=== PATIENT | female | born 1960 | race Caucasian/White ===

== ENCOUNTER 2018-07-01 15:08 | Emergency (ER) | payer MEDICARE, MEDICAID ==
[~2018-07-01] VITALS: Ht 154.9 cm; Wt 104.5 kg
[~2018-07-01 15:08] MED LIST: ADVAIR 500/501 DISK INH; FLUTICASONE PRO16 GM NASAL; HYDROCODONE-APA1 TAB PO; K-TAB10 MEQ PO; MAG-OXIDE400 MG PO; MULTIPLE VITAMI1 TA1 PO; NORVASC10 MG PO; PRILOSEC20 MG PO; PROVENTIL/2.5 MG/3 M INH; SINGULAIR10 MG PO; XANAX XR 1 MG TA1 MG PO; ZYRTEC10 MG PO
[2018-07-01 15:43] VITALS: Ht 154.9 cm; Wt 104.5 kg
[2018-07-01] MEDS ORDERED: XOPENEX 0.0.63 MG/3 UPD (15:45)
[2018-07-01] MEDS ORDERED: PHENERGAN25 M1 PO (19:50)
[2018-07-01 20:36] VITALS: BP 158/86
== END 2018-07-01 20:00 | disposition home or self-care (01) ==
LOC: D.ER 15:08
DX: G43.909 Migraine, unspecified, not intractable, without status migrainosus (principal); R11.0 Nausea; I10 Essential (primary) hypertension

== ENCOUNTER 2020-12-30 15:03 | Observation (INO) | payer MEDICARE, MEDICAID ==
[~2020-12-30] VITALS: Ht 154.9 cm; Wt 96.4 kg
[~2020-12-30 15:03] MED LIST changes: +OMEPRAZOLE20 M1 PO; +PHENERGAN25 M1 PO; -PRILOSEC20 MG PO; +XOPENEX 0.0.63 MG/3 UPD
[2020-12-30 15:07] VITALS: Ht 154.9 cm; Wt 96.4 kg
[2020-12-30 15:30] LABS: HEMATOCRIT 45.1 % (36.0-48.0); HEMOGLOBIN 14.7 g/dL (12-16); MCH 30.1 pg (26.0-34.0); MCHC 32.6 g/dL (31.0-37.0); MCV 92.2 fL (80.0-100.0); MEAN PLATELET VOLUME 8.5 fL (7.4-10.4); PLATELET COUNT 371 10x3/uL (130-400); RBC 4.89 10x6/uL (4.00-5.40); WBC 40.2 10x3/uL (4.8-10.8)
[2020-12-30 15:44] LABS: CALC OSMOLALITY 283 mosm/kg (275-300); CALCIUM 8.7 mg/dL (8.5-10.1); CARBON DIOXIDE 29.4 mmol/L (21.0-32.0); CHLORIDE - SERUM 105 mmol/L (98-107); CREATININE - SERUM 0.8 mg/dL (0.6-1.3); GLUCOSE 114 mg/dL (74-106); SODIUM 142 mmol/L (136-145); UREA NITROGEN 13 mg/dL (7-18); eGFR NON AFRICAN AMERICAN 77 mL/min (90-120)
[2020-12-30 16:01] LABS: ALBUMIN 3.7 g/dL (3.4-5.0); ALKALINE PHOSPHATASE 108 U/L (30-120); ALT (SGPT) 30 U/L (10-68); BILIRUBIN - TOTAL 0.25 mg/dL (0.2-1.3); CKMB 0.6 U/L (0.0-3.6); CREATINE KINASE 115 UL (21-215); PROTEIN - SERUM 7.1 g/dL (6.4-8.2)
[2020-12-30 16:04] LABS: TROPONIN-I < 0.017 ng/mL (0.000-0.060)
[2020-12-30 16:17] LABS: LYMPHOCYTES 82 % (15-50); MONOCYTES 1 % (2-11); NEUTROPHILS 17 % (40-80); PLATELET ESTIMATE NORMAL
[2020-12-30] MEDS ORDERED: IMITREX6 MG/0.51 SC (17:41)
[2020-12-30] MEDS ORDERED: AZELASTINE137 MCG/0. NASAL (17:44)
[2020-12-30] MEDS ORDERED: GLUCOTROL XL 1010 MG PO (17:45)
[2020-12-30] MEDS ORDERED: AIMOVIG SC (17:47)
[2020-12-30] MEDS ORDERED: LASIX40 MG PO (21:07)
[2020-12-30] MEDS ORDERED: IPRAT-ALBUT 0.5-3 ML UPD (21:09)
[2020-12-30 21:46] VITALS: BP 141/70
[2020-12-30 22:58] VITALS: BP 133/79
--- NOTE | 2020-12-31 01:08 | NUR ---
EKG 1 OF 3 SHOWS NORMAL SINUS RHYTHM. PT STATES CHEST PAIN AT THIS TIME.
[2020-12-31 01:47] LABS: CKMB 0.6 U/L (0.0-3.6); CREATINE KINASE 114 UL (21-215)
[2020-12-31 01:52] LABS: TROPONIN-I < 0.017 ng/mL (0.000-0.060)
--- NOTE | 2020-12-31 02:19 | NUR ---
REPORT GIVEN TO TRUDY SANCHEZ
--- NOTE | 2020-12-31 05:21 | NUR ---
CARDIOLOGY PAGED FOR CONSULT
[2020-12-31 06:22] LABS: BASOPHILS 0.3 % (0-2); EOSINOPHILS 0.5 % (0-7); HEMATOCRIT 42.5 % (36.0-48.0); HEMOGLOBIN 14.1 g/dL (12-16); MCH 30.2 pg (26.0-34.0); MCHC 33.1 g/dL (31.0-37.0); MCV 91.3 fL (80.0-100.0); MEAN PLATELET VOLUME 8.4 fL (7.4-10.4); MONOCYTES 2.8 % (2-11); NEUTROPHILS 22.4 % (40-80); PLATELET COUNT 319 10x3/uL (130-400); RBC 4.66 10x6/uL (4.00-5.40); WBC 33.5 10x3/uL (4.8-10.8)
[2020-12-31 06:46] LABS: ALBUMIN 3.3 g/dL (3.4-5.0); ALKALINE PHOSPHATASE 102 U/L (30-120); ALT (SGPT) 26 U/L (10-68); CALC OSMOLALITY 282 mosm/kg (275-300); CALCIUM 8.8 mg/dL (8.5-10.1); CARBON DIOXIDE 29.1 mmol/L (21.0-32.0); CHLORIDE - SERUM 106 mmol/L (98-107); CHOL - HDL RATIO 4.4 ratio (2.3-4.1); CHOLESTEROL, TOTAL 188 mg/dL (0-200); CKMB 0.6 U/L (0.0-3.6); CREATINE KINASE 105 UL (21-215); CREATININE - SERUM 0.7 mg/dL (0.6-1.3); GLUCOSE 89 mg/dL (74-106); HDL CHOLESTEROL 43 mg/dL (32-96); LDL CHOLESTEROL 124 mg/dL (0-100); LDL-HDL RATIO 2.9 ratio (1.5-3.5); PHOSPHOROUS 4.2 mg/dL (2.5-4.9); POTASSIUM - SERUM 3.2 mmol/L (3.5-5.1); PROTEIN - SERUM 6.5 g/dL (6.4-8.2); SODIUM 143 mmol/L (136-145); TRIGLYCERIDE 105 mg/dL (30-200); TROPONIN-I < 0.017 ng/mL (0.000-0.060); UREA NITROGEN 9 mg/dL (7-18); eGFR NON AFRICAN AMERICAN 90 mL/min (90-120)
[2020-12-31 11:38] VITALS: BP 125/73
[2020-12-31 12:12] LABS: CKMB 0.6 U/L (0.0-3.6); CREATINE KINASE 121 UL (21-215); TROPONIN-I < 0.017 ng/mL (0.000-0.060)
[2020-12-31 19:33] VITALS: BP 135/70
[2020-12-31 22:01] VITALS: BP 116/86
[2020-12-31 23:00] VITALS: BP 116/64
[2021-01-01 00:01] VITALS: BP 138/70
[2021-01-01 02:27] VITALS: BP 109/55
[2021-01-01 05:21] VITALS: BP 113/61
[2021-01-01 07:48] LABS: HEMATOCRIT 45.7 % (36.0-48.0); HEMOGLOBIN 15.1 g/dL (12-16); MCH 30.2 pg (26.0-34.0); MCV 91.5 fL (80.0-100.0); MEAN PLATELET VOLUME 9.2 fL (7.4-10.4); PLATELET COUNT 333 10x3/uL (130-400); RDW 14.2 % (11.5-14.5); WBC 34.6 10x3/uL (4.8-10.8)
[2021-01-01 08:02] LABS: ALBUMIN 3.7 g/dL (3.4-5.0); ALKALINE PHOSPHATASE 114 U/L (30-120); ALT (SGPT) 27 U/L (10-68); BILIRUBIN - TOTAL 0.58 mg/dL (0.2-1.3); CALC OSMOLALITY 284 mosm/kg (275-300); CALCIUM 9.3 mg/dL (8.5-10.1); CARBON DIOXIDE 29.7 mmol/L (21.0-32.0); CHLORIDE - SERUM 105 mmol/L (98-107); CREATININE - SERUM 0.6 mg/dL (0.6-1.3); GLUCOSE 116 mg/dL (74-106); MAGNESIUM - SERUM 2.4 mg/dL (1.8-2.4); PHOSPHOROUS 4.3 mg/dL (2.5-4.9); POTASSIUM - SERUM 3.8 mmol/L (3.5-5.1); PROTEIN - SERUM 6.6 g/dL (6.4-8.2); SODIUM 143 mmol/L (136-145); UREA NITROGEN 11 mg/dL (7-18); eGFR NON AFRICAN AMERICAN > 90 mL/min (90-120)
[2021-01-01] MEDS ORDERED: NITROQUICK0.4 MG SL (11:10)
[2021-01-01] MEDS ORDERED: CARAFATE1 G PO (11:11)
[2021-01-01 14:05] LABS: EOSINOPHILS 1 % (0-7); LYMPHOCYTES 66 % (15-50); MONOCYTES 5 % (2-11); NEUTROPHILS 23 % (40-80); PLATELET ESTIMATE NORMAL; ROULEAUX OCC
== END 2021-01-01 14:30 | disposition home or self-care (01) ==
LOC: D.ER 15:03 → D.EDHOLD 22:16 → OBSVTIME 22:16 → D.EDHOLD 01-01 14:30
PROVIDERS: Family Medicine; ADMIT Emergency Medicine; ATTEND Emergency Medicine
DX: I20.9 Angina pectoris, unspecified (principal); I10 Essential (primary) hypertension; E11.9 Type 2 diabetes mellitus without complications; G47.33 Obstructive sleep apnea (adult) (pediatric); K21.9 Gastro-esophageal reflux disease without esophagitis; F41.9 Anxiety disorder, unspecified; C95.90 Leukemia, unspecified not having achieved remission; J45.909 Unspecified asthma, uncomplicated